=== PATIENT | male | born 1955 | race Caucasian/White ===

== ENCOUNTER 2019-12-11 13:43 | Outpatient (RCR) | payer SELFPAY | END 2019-12-11 23:59 | disposition home or self-care (01) | LOC: ANHAUDIO 13:43 | PROVIDERS: PCP Internal Medicine; Visit Provider Internal Medicine | DX: Z46.1 Encounter for fitting and adjustment of hearing aid (principal) | CPT/HCPCS: V5014 ==

== ENCOUNTER 2020-05-05 13:03 | Outpatient (CLI) | payer MEDICARE, BC, SELFPAY ==
[2020-05-05 14:39] LABS: Cholesterol 151 mg/dL (0-200); HDL Direct 63 mg/dL; Triglycerides 56 mg/dL (<150)
[2020-05-05 14:50] LABS: LDL Cholesterol Direct 74 mg/dL
[2020-05-05 16:10] LABS: Alanine Aminotransferase 52 U/L (4-50); Albumin Level 3.9 g/dL (3.5-5.1); Alkaline Phosphatase 81 U/L (38-126); Anion Gap 4 mmol/L (8-16); Aspartate Amino Transferase 80 U/L (17-59); Bilirubin,Total 2.1 mg/dL (0.2-1.3); Blood Urea Nitrogen 8 mg/dL (9-20); Calcium 8.9 mg/dL (8.4-10.2); Carbon Dioxide 33 mmol/L (22-30); Chloride 98 mmol/L (98-107); Estimated Glomerular Filt Rate > 60; Glucose 91 mg/dL (75-110); Potassium 4.1 mmol/L (3.4-5.0); Sodium 135 mmol/L (137-145)
[2020-05-06 16:58] LABS: Prostate Specific Antigen 0.5 ng/mL (< OR = 4.0)
== END 2020-05-05 13:04 | disposition home or self-care (01) ==
PROVIDERS: PCP Internal Medicine; Visit Provider Nurse Practitioner
DX: R63.5 Abnormal weight gain (principal); Z13.6 Encounter for screening for cardiovascular disorders; Z12.5 Encounter for screening for malignant neoplasm of prostate; Z13.220 Encounter for screening for lipoid disorders
CPT/HCPCS: 36415; 80053; 80061; 84153; 84443; G0103

== ENCOUNTER 2020-05-14 14:53 | Outpatient (CLI) | payer MEDICARE, BC, SELFPAY ==
[2020-05-14 16:02] LABS: Bilirubin Indirect 1.7 mg/dL (0-1.1)
== END 2020-05-14 14:54 | disposition home or self-care (01) ==
LOC: ANHLAB 14:58
PROVIDERS: PCP Internal Medicine; Visit Provider Nurse Practitioner
DX: R17 Unspecified jaundice (principal)
CPT/HCPCS: 36415; 82248

== ENCOUNTER → 2020-05-25 10:56 | Outpatient (CLI) | payer MEDICARE, BC, SELFPAY ==
--- NOTE | ~2020-05-25 | US_ITS ---
EXAMINATION: US abdomen limited EXAM DATE: 05/25/2020 11:24 INDICATION: Elevated liver enzymes and bilirubin. TECHNIQUE: Multiple grayscale and Doppler images of the abdomen right upper quadrant were obtained (b y a technologist who performed the scan) and subsequently reviewed. There is no prior study for abdulaziz bearden. FINDINGS: The pancreatic head and body are normal in appearance. The pancreatic tail is not visualized. There is echogenic liver parenchyma, hepatic steatosis. There are no focal liver lesions identified. Th ere is no evidence of intrahepatic biliary duct dilation. Portal venous flow was seen in the hepatop edal, normal direction and has normal Doppler waveform. No right-sided hydronephrosis. Common bile duct measures 7 mm, which is normal. The gallbladder wall is normal in thickness, with ex pected amount of distention. No sonographic evidence of pericholecystic fluid. There is some gallbl adder sludge. There may also be poorly calcified cholelithiasis. Technologist performing exam report s patient did not demonstrate sonographic Vance's sign. Please note that this sign is less reliable in patients who have received pain medication. IMPRESSION: 1. Gallbladder sludge, possible cholelithiasis. 2. Hepatic steatosis. Reviewed, dictated and finalized at location A. OMER PROFESSIONAL
== END ==
PROVIDERS: PCP Internal Medicine; Visit Provider Nurse Practitioner
DX: R74.01 Elevation of levels of liver transaminase levels (principal); K76.0 Fatty (change of) liver, not elsewhere classified; K82.8 Other specified diseases of gallbladder
CPT/HCPCS: 76705

== ENCOUNTER 2020-07-16 14:03 | Outpatient (CLI) | payer MEDICARE, BC, SELFPAY | END 2020-07-16 14:04 | disposition home or self-care (01) | LOC: ANHAUDIO 14:04 | PROVIDERS: PCP Internal Medicine; Visit Provider Internal Medicine | DX: H91.90 Unspecified hearing loss, unspecified ear (principal) | CPT/HCPCS: 92557; 92567 ==

== ENCOUNTER 2020-09-17 16:47 | Outpatient (CLI) | payer MEDICARE, BC, SELFPAY | END 2020-09-17 16:48 | disposition home or self-care (01) | LOC: ANHCOVIDVC 16:47 | PROVIDERS: PCP Internal Medicine | DX: Z23 Encounter for immunization (principal) | CPT/HCPCS: 0001A; 91300 ==

== ENCOUNTER 2020-10-08 16:46 | Outpatient (CLI) | payer MEDICARE, BC, SELFPAY | END 2020-10-08 16:47 | disposition home or self-care (01) | LOC: ANHCOVIDVC 16:46 | PROVIDERS: PCP Internal Medicine | DX: Z23 Encounter for immunization (principal) | CPT/HCPCS: 0002A; 91300 ==

== ENCOUNTER 2021-01-15 08:17 | Outpatient (CLI) | payer MEDICARE, BC, SELFPAY ==
--- NOTE | ~2021-01-15 | US_ITS ---
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 COMPARISON: None. FINDINGS: Right and left brachial artery pressures of 157m Hg and 171m Hg, respectively, are concordant (normal difference <= 30 mmHg). The right ankle-brachial index (ARTIS) is 1.25 (normal >= 0.9-1.0). The right great toe-brachial index (TBI) is unable to be obtained due to inability to occlude the vessel (normal >= 0.65). Arterial Dopp ler waveforms are triphasic with brisk systolic upstrokes of both the right dorsalis pedis and entry table operator ior tibial arteries. The left ARTIS is 1.24. The left TBI is unable to be obtained due to inability to occlude the vessel. A rterial Doppler waveforms are biphasic with brisk systolic upstrokes at both the left posterior tibia l and dorsalis pedis arteries. IMPRESSION: 1. No significant arterial occlusive disease to either lower limb with normal bilateral ABIs. Reviewed, dictated and finalized at location A. IMPRESSION: 1. No significant arterial occlusive disease to either lower limb with normal b ilateral ABIs.
== END 2021-01-15 08:18 | disposition home or self-care (01) ==
PROVIDERS: PCP Internal Medicine; Visit Provider Internal Medicine
DX: L97.909 Non-pressure chronic ulcer of unspecified part of unspecified lower leg with unspecified severity (principal); I73.9 Peripheral vascular disease, unspecified
CPT/HCPCS: 93922

== ENCOUNTER 2021-02-08 07:25 | Outpatient (RCR) | payer MEDICARE, BC, SELFPAY ==
[2021-01-21 09:30] VITALS: BMI 40.5
== END 2021-04-12 11:02 | disposition home or self-care (01) ==
LOC: ANHWOC 07:25
PROVIDERS: PCP Internal Medicine; Visit Provider Internal Medicine
DX: L97.911 Non-pressure chronic ulcer of unspecified part of right lower leg limited to breakdown of skin (principal)
CPT/HCPCS: 29581; 99212; 99213; A9270; G0463

== ENCOUNTER 2021-02-12 10:46 | Outpatient (CLI) | payer MEDICARE, BC, SELFPAY ==
--- NOTE | ~2021-02-12 | MR_ITS ---
EXAMINATION: MR lumbar spine wo con EXAM DATE: 02/12/2021 11:37 INDICATION: Lumbar radiculopathy. TECHNIQUE: Multi-sequential, multiplanar MR images of the lumbar spine were obtained without contrast . Sagittal T1, T2, T2 fat saturation images. Axial T2 weighted images. Comparison is made to prior examination from 07/11/2013. FINDINGS: The conus medullaris terminates at the T12-L1 level and has normal signal intensity and mor phology. Mild chronic compression fracture of L1, anterior wedging. Lumbar fusion hardware L2-L5. So me posterior laminotomy defects. Mild to moderate disc disease all lumbar levels. There are no focal marrow signal abnormalities suspicious for malignancy or acute fracture. The vertebral bodies are ali gned in the AP dimension. Level by level evaluation: T12-L1: There is a mild diffuse disc bulge. Facet arthropathy: Mild. Neural foraminal stenosis: No stenosis. Central canal stenosis: No stenosis. L1-L2: There is a moderate diffuse disc bulge. Facet arthropathy: Moderate . Ligamentum flavum enlargement. Neural foraminal stenosis: Mild to moderate left, mild right. Central canal stenosis: Moderate, nerve root crowding. L2-L3: Disc does not extend beyond the endplate margin. Facet arthropathy: Fused. Neural foraminal stenosis: No stenosis. Central canal stenosis: No stenosis. L3-L4: Disc does not extend beyond the endplate margin. Facet arthropathy: Fused. Neural foraminal stenosis: No stenosis. Central canal stenosis: No stenosis. L4-L5: Disc does not extend beyond the endplate margin. Facet arthropathy: Fused. Neural foraminal stenosis: No stenosis. Central canal stenosis: No stenosis. L5-S1: Disc does not extend beyond the endplate margin. Facet arthropathy: Moderate. Neural foraminal stenosis: Moderate right, mild left. Central canal stenosis: Mild. Compared to 2012, the disc bulge and nerve root crowding at L1-2 has increased. IMPRESSION: 1. Surgical changes L2-L5. 2. 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 Reviewed, dictated and finalized at location B. IMPRESSION: 1. Surgical changes L2-L5. 2. 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
== END 2021-02-12 10:47 | disposition home or self-care (01) ==
PROVIDERS: PCP Internal Medicine
DX: M54.16 Radiculopathy, lumbar region (principal)
CPT/HCPCS: 72148

== ENCOUNTER 2022-03-25 13:00 | Outpatient (RCR) | payer MEDICARE, BC, SELFPAY | END 2022-03-25 23:59 | disposition home or self-care (01) | LOC: ANHAUDIO 13:00 | PROVIDERS: PCP Family Medicine; Visit Provider Family Medicine | DX: Z46.1 Encounter for fitting and adjustment of hearing aid (principal) | CPT/HCPCS: 92593; 99199 ==

== ENCOUNTER 2022-04-05 14:04 | Outpatient (CLI) | payer MEDICARE, BC, SELFPAY | END 2022-04-05 14:05 | disposition home or self-care (01) | LOC: ANHAUDIO 14:05 | PROVIDERS: PCP Family Medicine; Referring Provider Family Medicine; Visit Provider Family Medicine | DX: H90.3 Sensorineural hearing loss, bilateral (principal) | CPT/HCPCS: 92557; 92567 ==

== ENCOUNTER 2023-10-31 11:37 | Outpatient (CLI) | payer MEDICARE, BC, SELFPAY | END 2023-10-31 11:38 | disposition home or self-care (01) | PROVIDERS: PCP Family Medicine; Visit Provider Otolaryngology | DX: H90.3 Sensorineural hearing loss, bilateral (principal) | CPT/HCPCS: 92557; 92567 ==

== ENCOUNTER 2024-01-08 15:00 | Outpatient (RCR) | payer MEDICARE, BC, SELFPAY | END 2024-01-08 23:59 | disposition home or self-care (01) | LOC: ANHAUDIO 15:00 | PROVIDERS: PCP Family Medicine; Visit Provider Otolaryngology | DX: Z46.1 Encounter for fitting and adjustment of hearing aid (principal) | CPT/HCPCS: V5014; V5261 ==